=== PATIENT | male | born 2000 | race Caucasian/White ===

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

== ENCOUNTER → 2018-01-22 | Outpatient (REF) | payer OTHER ==
[~2018-01-22] MED LIST: AUGM875T28 PO; IBUP-1022 PO
[2018-01-22 13:02] LABS: BASO % 0.3 % (0.0-1.0); EOS # 0.1 10^3/uL (0.0-0.50); EOS % 0.8 % (0.0-3.0); HEMATOCRIT 47.2 % (42.0-52.0); HEMOGLOBIN 16.2 g/dl (13.5-17.5); LYMPH # 1.8 10^3/uL (1.5-6.5); LYMPH % 27.8 % (24.0-44.0); MEAN CORPUSCULAR HEMOGLOBIN 30.1 pg (27.0-33.0); MEAN CORPUSCULAR HGB CONC 34.3 g/dl (32.0-36.5); MEAN CORPUSCULAR VOLUME 87.7 fl (80.0-96.0); MONO # 1.2 10^3/uL (0.0-0.8); MONO % 19.4 % (0.0-5.0); NEUTROPHILS # 3.3 10^3/uL (1.8-7.7); NEUTROPHILS % 51.4 % (36.0-66.0); PLATELET COUNT, AUTOMATED 159 10^3/uL (150-450); RED BLOOD COUNT 5.38 10^6/uL (4.30-6.10); WHITE BLOOD COUNT 6.3 10^3/uL (4.0-10.0)
[2018-01-22 13:08] LABS: ALBUMIN 4.8 GM/DL (3.2-5.2); ALT/SGPT 33 U/L (12-78); BILIRUBIN,TOTAL 0.8 MG/DL (0.2-1.0); BLOOD UREA NITROGEN 12 MG/DL (7-18); CALCIUM LEVEL 9.2 MG/DL (8.5-10.1); CARBON DIOXIDE LEVEL 30 MEQ/L (21-32); CHLORIDE LEVEL 103 MEQ/L (98-107); CREATININE FOR GFR 1.05 MG/DL (0.70-1.30); GLUCOSE, FASTING 99 MG/DL (70-100); POTASSIUM SERUM 4.3 MEQ/L (3.5-5.1); SODIUM LEVEL 139 MEQ/L (136-145); TOTAL PROTEIN 8.5 GM/DL (6.4-8.2)
== END ==
LOC: M SFHCLERA 11:05
PROVIDERS: ATTEND Physician Assistant
DX: J02.9 Acute pharyngitis, unspecified (principal)

== ENCOUNTER 2018-12-25 18:16 | Emergency (ER) | payer OTHER ==
[~2018-12-25] VITALS: Ht 182.9 cm; Wt 127.3 kg
[2018-12-25 18:18] VITALS: BP 144/68
[2018-12-25] MEDS ORDERED: CITA20TA6 (18:24)
[2018-12-25] MEDS ORDERED: TETRACAINE 0.5% OPHTH SOLN 4ML OD ONE (19:30)
[2018-12-25] MEDS ORDERED: FLUORESCEIN OPHTH 1 MG STRIP OD ONE (19:30)
[2018-12-25] MEDS ORDERED: ERYTHROMYCIN OPHTH OINT OD ONE (19:45)
== END 2018-12-25 19:43 | disposition home or self-care (01) ==
LOC: M ED 18:16
DX: T15.01XA Foreign body in cornea, right eye, initial encounter (principal); X58.XXXA Exposure to other specified factors, initial encounter; Y92.89 Other specified places as the place of occurrence of the external cause; F33.9 Major depressive disorder, recurrent, unspecified; F41.9 Anxiety disorder, unspecified; Z79.899 Other long term (current) drug therapy

== ENCOUNTER → 2020-08-19 | Outpatient (CLI) | payer OTHER ==
[~2020-08-19] MED LIST changes: +CITA20TA6; +ONDA4TAB6 PO
== END ==
LOC: M WUC 14:44
PROVIDERS: ATTEND Nurse Practitioner Family
DX: M54.5 Low back pain (principal)

== ENCOUNTER 2020-11-30 05:32 | Emergency (ER) | payer OTHER ==
[~2020-11-30] VITALS: Ht 182.9 cm; Wt 127.3 kg
[~2020-11-30 05:32] MED LIST changes: -ONDA4TAB6 PO
[2020-11-30] MEDS ORDERED: NS 1,000 ML IV ONE (08:05)
[2020-11-30] MEDS ORDERED: METOCLOPRAMIDE INJ 10MG/2ML VIAL (J2765 PER 1) IV ONE (08:05)
--- OUTSIDE RECORDS SUMMARY | 2020-11-30 08:45 | CCD ---
Author Author [facility] Organization [facility] Address Unknown Phone Unavailable Care Team Providers Care Insurance Loss Control Surveyor Name Role Phone Ferreira, Claudia CHUCKING MACHINE SET UP OPERATOR Unavailable Unavailable Ferreira, Claudia CHUCKING MACHINE SET UP OPERATOR Unavailable Unavailable Ferreira, Claudia CHUCKING MACHINE SET UP OPERATOR Unavailable Unavailable Ferreira, Claudia CHUCKING MACHINE SET UP OPERATOR Unavailable Unavailable Ferreira, Claudia CHUCKING MACHINE SET UP OPERATOR Unavailable Unavailable Ferreira, Claudia CHUCKING MACHINE SET UP OPERATOR Unavailable Unavailable Ferreira, Claudia CHUCKING MACHINE SET UP OPERATOR Unavailable Unavailable Ferreira, Claudia CHUCKING MACHINE SET UP OPERATOR Unavailable Unavailable Ferreira, Claudia CHUCKING MACHINE SET UP OPERATOR Unavailable Unavailable Ferreira, Claudia CHUCKING MACHINE SET UP OPERATOR Unavailable Unavailable Ferreira, Claudia CHUCKING MACHINE SET UP OPERATOR Unavailable Unavailable Ferreira, Claudia CHUCKING MACHINE SET UP OPERATOR Unavailable Unavailable Ferreira, Claudia CHUCKING MACHINE SET UP OPERATOR Unavailable Unavailable Lexi Queen MD Unavailable Unavailable Lexi Queen MD Unavailable Unavailable Lexi Queen MD Unavailable Unavailable Lexi Queen MD Unavailable Unavailable Lexi Queen MD Unavailable Unavailable Lexi Queen MD Unavailable Unavailable Lexi Queen MD Unavailable Unavailable Lexi Queen MD Unavailable Unavailable Lexi Queen MD Unavailable Unavailable Lexi Queen MD Unavailable Unavailable Lexi Queen MD Unavailable Unavailable Lexi Queen MD Unavailable Unavailable Lexi Queen MD Unavailable Unavailable Lexi Queen MD Unavailable Unavailable Lexi Queen MD Unavailable Unavailable Queen, L Glen RAMIRES Unavailable Unavailable Queen, L Glen RAMIRES Unavailable Unavailable Queen, L Glen RAMIRES Unavailable Unavailable Queen, L Glen RAMIRES Unavailable Unavailable Queen, L Glen RAMIRES Unavailable Unavailable Queen, L Glen RAMIRES Unavailable Unavailable Queen, L Glen RAMIRES Unavailable Unavailable Queen, L Glen RAMIRES Unavailable Unavailable Queen, L Glen RAMIRES Unavailable Unavailable Queen, L Glen RAMIRES Unavailable Unavailable Queen, L Glen RAMIRES Unavailable Unavailable Queen, L Glen RAMIRES Unavailable Unavailable Queen, L Glen RAMIRES Unavailable Unavailable Queen, L Glen RAMIRES Unavailable Unavailable Queen, L Glen RAMIRES Unavailable Unavailable Queen, L Glen RAMIRES Unavailable Unavailable Queen, L Glen RAMIRES Unavailable Unavailable Queen, L Glen RAMIRES Unavailable Unavailable Queen, L Glen RAMIRES Unavailable Unavailable Queen, L Glen RAMIRES Unavailable Unavailable Queen, L Glen RAMIRES Unavailable Unavailable Queen, L Glen RAMIRES Unavailable Unavailable Queen, L Glen RAMIRES Unavailable Unavailable Queen, L Glen RAMIRES Unavailable Unavailable Queen, L Glen RAMIRES Unavailable Unavailable Queen, L Glen RAMIRES Unavailable Unavailable Queen, L Glen RAMIRES Unavailable Unavailable Queen, L Glen RAMIRES Unavailable Unavailable Queen, L Glen RAMIRES Unavailable Unavailable Queen, L Glen RAMIRES Unavailable Unavailable Queen, L Glen RAMIRES Unavailable Unavailable Queen, L Glen RAMIRES Unavailable Unavailable Queen, L Glen RAMIRES Unavailable Unavailable Queen, L Glen RAMIRES Unavailable Unavailable Queen, L Glen RAMIRES Unavailable Unavailable RING, K NADIA PA Unavailable Unavailable RING, K NADIA PA Unavailable Unavailable RING, K NADIA PA Unavailable Unavailable RING, K NADIA PA Unavailable Unavailable RING, K NADIA PA Unavailable Unavailable RING, K NADIA PA Unavailable Unavailable RING, K NADIA PA Unavailable Unavailable RING, K NADIA PA Unavailable Unavailable RING, K NADIA PA Unavailable Unavailable RING, K NADIA PA Unavailable Unavailable RING, K NADIA PA Unavailable Unavailable RING, K NADIA PA Unavailable Unavailable RING, K NADIA PA Unavailable Unavailable RING, K NADIA PA Unavailable Unavailable RING, K NADIA PA Unavailable Unavailable RING, K NADIA PA Unavailable Unavailable RING, K NADIA PA Unavailable Unavailable RING, K NADIA PA Unavailable Unavailable RING, K NADIA PA Unavailable Unavailable RING, K NADIA PA Unavailable Unavailable RING, K NADIA PA Unavailable Unavailable Re-disclosure Warning The records that you are about to access may contain information from federally-assisted alcohol or drug abuse programs. If such information is present, then the following federally mandated warning applies: This information has been disclosed to you from records protected by federal confidentiality rules (42 CFR part 2). The federal rules prohibit you from making any further disclosure of this information unless further disclosure is expressly permitted by the written consent of the person to whom it pertains or as otherwise permitted by 42 CFR part 2. A general authorization for the release of medical or other information is NOT sufficient for this purpose. The Federal rules restrict any use of the information to criminally investigate or prosecute any alcohol or drug abuse patient.The records that you are about to access may contain highly sensitive health information, the redisclosure of which is protected by Article 27-F of the [facility] Public Health law. If you continue you may have access to information: Regarding HIV / AIDS; Provided by facilities licensed or operated by the [facility] Office of Mental Health; or Provided by the [facility] Office for People With Developmental Disabilities. If such information is present, then the following [facility] mandated warning applies: This information has been disclosed to you from confidential records which are protected by state law. State law prohibits you from making any further disclosure of this information without the specific written consent of the person to whom it pertains, or as otherwise permitted by law. Any unauthorized further disclosure in violation of state law may result in a fine or detention sentence or both. A general authorization for the release of medical or other information is NOT sufficient authorization for further disc losure. Encounters Encounter Providers Location Date Indications Data Source(s ) OFFICE OUTPATIENT NEW 30 MINUTES Attender: Glen Queen MD Physic al Therapy 11/03/2020 08:00:00 AM EDT [facility] ([facility]) Outpatient [address] [facility], [facility] [id number] 09/26/2020 12:00:00 AM EDT eCW1 ([facility]) Outpatient Attender: Claudia Boswell stephanie 08/19/2020 02:10:00 PM EDT [facility] ([facility]) Outpatient Attender: NADIA [facility] 03/23/2020 10:10:00 AM EST [facility] ([facility]) Immunizations Vaccine Date Status Description Data Source(s) COVID-19 VACCINE Moderna 07/23/2020 12:00:00 AM EDT completed [facility] Vaccine Series Complete: YESThis Data wa s Submitted to [facility] Via [employer]. COVID-19 VACCINE Moderna 06/25/2020 12:00:00 AM EDT completed [facility] Vaccine Series Complete: NOThis Data was Submitted to [facility] Via [employer]. Medications Medication Brand Name Start Date Product Form Dose Route Admi nistrative Instructions Pharmacy Instructions Status Indications Reaction Description Data Source(s) 10 mg 09/26/2020 12:00:00 AM EDT tablet 90 TAKE 1 TABLET BY MOUTH ONCE A DAY TAKE 1 TABLET BY MOUTH ONCE A DAY SOLD: 10/03/2020 [facility] Citalopram 10 MG Oral Tablet Citalopram Hydrobromide 1 0 MG Citalopram Hydrobromide 10 MG 09/26/2020 12:00:00 AM EDT 1.0 {tablet} active Citalopram Hydrobromide 10 MG [facility] ([facility]) Amoxicillin 875 MG / Clavulanate 125 MG Oral Tablet 87 5-125 mg AMOXICILLIN/POTASSIUM CLAV 08/19/2020 12:00:00 AM EDT tablet 20 TAKE ONE TABLET BY MOUTH TWICE A DAY DIRECTED FOR 10 DAYS TAKE ONE TABLET BY MOUTH TWICE A DAY DIRECTED FOR 10 DAYS SOLD: 08/19/2020 [facility] No Active Medications 08/19/2020 12:00:00 AM EDT completed [facility] ([facility]) Amoxicillin 875 MG / Clavulanate 125 MG Oral Tablet Am oxicillin/Clavulanate Potassium 08/19/2020 12:00:00 AM EDT ORAL active [facility] ([facility]) Ofloxacin 3 MG/ML Otic Solution Ofloxacin (Otic) 03/23/2020 12:00:00 AM EST AURICULAR completed [facility] ([facility]) 0.3 % 03/23/2020 12:00:00 AM EST drops 5 INSTILL 4-6 DROPS INTO THE LEFT EAR EVERY 12 HOURS FOR 7 DAYS INSTILL 4-6 DROPS INTO THE LEFT EAR EVER Y 12 HOURS FOR 7 DAYS SOLD: 03/23/2020 [facility] 20 mg 10/15/2019 12:00:00 AM EDT tablet 30 TAKE ONE TABLET BY MOUTH EVERY DAY MAXIMUM DAILY DOSE = 1 TAKE ONE TABLET BY MOUTH EVERY DAY MAXIM UM DAILY DOSE = 1 SOLD: 11/14/2019 [facility] 20 mg 10/15/2019 12:00:00 AM EDT tablet 30 TAKE ONE TABLET BY MOUTH EVERY DAY MAXIMUM DAILY DOSE = 1 TAKE ONE TABLET BY MOUTH EVERY DAY MAXIM UM DAILY DOSE = 1 SOLD: 10/17/2019 [facility] Insurance Providers Payer name Policy type / Coverage type Policy ID Covered green party ID Covered green party's relationship to mruray Policy [place] Plan Information MEDICAID [place] [id number] 18 [id number] [facility] COMMUNITY PLAN [facility] [id number] SP [id number] [facility] [place]UNITY PL[place] [id number] 18 [id number] MEDICAID [id number] SP [id number] [facility] [id number] [facility] [id number] MEDICAID -PHYSICIAN [id number] MEDICAID -CLINIC [id number] ANSI-Medicaid [id number] ANSI-Medicaid [id number] ANSI-Commercial [id number] SELF PAY ONLY [id number] SP [id number] DAVID [id number] SP [id number] 200 [id number] [facility] [id number] SP [id number] Problems, Conditions, and Diagnoses Code Display Name Description Problem Type Effective Dates Data Source(s) G89.29 [id number] Other chronic pain Problem 09/26/2020 12:00: 00 AM EDT eCW1 ([facility]) Surgeries/Procedures Procedure Description Date Indications Data Source(s) OFFICE OUTPATIENT NEW 30 MINUTES 11/03/2020 12:00:00 A M EDT [facility] ([facility] ) OFFICE OUTPATIENT VISIT 15 MINUTES 08/19/2020 12:00:00 AM EDT [facility] ([facility]) OFFICE OUTPATIENT VISIT 15 MINUTES 03/23/2020 12:00:00 AM EST [facility] ([facility]) Results ID Date Data Source [id number] 08/19/2020 12:00:00 AM EDT [facility] Name Value Range Interpretation Code Description Data Mirtha rce(s) Supporting Document(s) SARS-CoV2 Rapid Antigen Negative [facility] This lab was reported by [facility]. Procedure Social History Code Duration Value Status Description Data Source(s ) Smoking 09/26/2020 12:00:00 AM EDT Never Smoker completed Never S moker eCW1 ([facility]) Smoking 08/19/2020 12:00:00 AM EDT Patient has never smoked co mpleted Patient has never smoked [facility] ([facility]) Vital Signs ID Date Data Source UNK Name Value Range Interpretation Code Description Data Source(s) Body temperature 97.1 [degF] 97.1 [degF] [facility] ([facility] ) Body height 69.5 [in_i] 69.5 [in_i] [facility] ([facility] ) 5'9.50" Body weight 288.12 [lb_av] 288.12 [lb_av] MEDEN T ([facility] ) Body mass index (BMI) [Ratio] 41.9 kg/m2 41.9 k g/m2 [facility] ([facility] ) Body weight 301.2 [lb_av] 301.2 [lb_av] eCW1 ([facility]) Body weight 136.62 kg 136.62 kg eCW1 ([facility]) Body height 70.5 [in_i] 70.5 [in_i] eCW1 ([facility]) Body mass index (BMI) [Ratio] 42.60 kg/m2 42.60 kg/m2 eCW1 ([facility]) Heart rate 79 /min 79 /min [facility]) Respiratory rate 17 /min 17 /min eCW1 ([facility]) Body temperature 98.2 [degF] 98.2 [degF] eCW1 ( [facility]) Systolic blood pressure 141 mm[Hg] 141 mm[Hg] e CW1 ([facility]) Diastolic blood pressure 68 mm[Hg] 68 mm[Hg] eCW1 ([facility]) Body weight 305.00 [lb_av] 305.00 [lb_av] MEDEN T ([facility]) Body height 72 [in_i] 72 [in_i] [facility] ([facility]) 6'0" Body mass index (BMI) [Ratio] 41.4 kg/m2 41.4 k g/m2 [facility]) Systolic blood pressure 133 mm[Hg] 133 mm[Hg] M EDENT ([facility]) Diastolic blood pressure 87 mm[Hg] 87 mm[Hg] MED[facility] ([facility]) Heart rate 72 /min 72 /min [facility] ([facility]) Respiratory rate 17 /min 17 /min [facility] ( [facility]) Oxygen saturation in Arterial blood by Pulse oximetry 95 % 95 % MED[facility] ([facility]) Body temperature 98.2 [degF] 98.2 [degF] [facility] ([facility]) Systolic blood pressure 150 mm[Hg] 150 mm[Hg] M EDENT ([facility]) drank 2 energy drinks before coming in Diastolic blood pressure 100 mm[Hg] 100 mm[Hg] [facility] ([facility]) drank 2 energy drinks before coming in Heart rate 78 /min 78 /min [facility] ([facility], [facility]) Respiratory rate 14 /min 14 /min [facility] ( [facility]) Oxygen saturation in Arterial blood by Pulse oximetry 97 % 97 % [facility] ([facility]) Body temperature 98.7 [degF] 98.7 [degF] MED[facility] ([facility]) Body weight 310.00 [lb_av] 310.00 [lb_av] MEDEN T ([facility]) Body height 72 [in_i] 72 [in_i] [facility] ([facility]) 6'0" Body mass index (BMI) [Ratio] 42.0 kg/m2 42.0 k g/m2 [facility] ([facility]) Patient Treatment Plan of Care Planned Activity Planned Date Details Description Data Source (s) Citalopram 10 MG Oral Tablet 09/26/2020 12:00:00 AM EDT eCW1 ([facility])
--- OUTSIDE RECORDS SUMMARY | 2020-11-30 08:45 | CCD | Continuity of Care Document ---
Author Author Alton ROMAN MD Organization Unknown Address [address] [place] [address] Phone [phone] Care Team Providers Care Cover Remover Name Role Phone Glen Roman MD AUTM [phone] Aixa Mcginnis MD AUTM [phone] Ashley Liang [facility] AUTM [phone] Problems Description No Information Available Social History Type Date Description Comments Sex Unknown Allergies, Adverse Reactions, Alerts Description No Known Drug Allergies Medications Active Medications SIG Qnty Indications Ordering Provide r Date Celexa 20mg Tablets 1 by mouth every day Unknown Immunizations Description No Information Available Vital Signs Date Vital Result Comment 11/03/2020 8:36am Body Temperature 97.1 F Height 69.5 inches 5'9.50" Weight 288.12 lb BMI (Body Mass Index) 41.9 kg/m2 Results Description No Information Available Procedures Date Code Description Status 11/03/2020 11660 Office/Outpatient New Low [facility] 30 -44 Minutes Completed Medical Devices Description No Information Available Encounters Type Date Location Provider Dx Diagnosis Office Visit 11/03/2020 8:00a [place] Glen Roman MD M54.5 Low back pain E66.01 Morbid (severe) obesity due to excess calories Z68.41 Body mass index [BMI] 40.0-4 4.9, adult Assessments Date Code Description Provider 11/03/2020 M54.5 Low back pain Glen Roman MD 11/03/2020 E66.01 Morbid (severe) obesity due to e xcess calories Glen Roman MD 11/03/2020 Z68.41 Body mass index [BMI] 40.0-44.9, adult Glen Roman MD Plan of Treatment 11/03/2020 - Glen Roman MD* M54.5 Low back pain* Follow up:* PRN * E66.01 Morbid (severe) obesity due to excess calories * Z68.41 Body mass index [BMI] 40.0-44.9, adult Functional Status Description No Information Available Mental Status Description No Information Available Referrals Refer to Dr Reason for Referral Status Appt Date Glen Roman MD Physical therapy low back pe r [facility] auth is approved for eval, patient is going [facility] passed to chart sw. Created [address] [facility], [address] [place] [address] [phone] Glen Roman MD M54.5 LOW BACK PAIN Created [address] [place] [address], [address] [place] [address] [phone]
--- OUTSIDE RECORDS SUMMARY | 2020-11-30 08:45 | CCD | Continuity of Care Document ---
Author Author Alton ROMAN MD Organization Unknown Address [address] [place] [address] Phone [phone] Care Team Providers Care Tongue Stitcher Name Role Phone Glen Roman MD AUTM [phone] Aixa Mcginnis MD AUTM [phone] Ashley Liang [facility] AUTM [phone] Problems Description No Information Available Social History Type Date Description Comments Sex Unknown Allergies, Adverse Reactions, Alerts Description No Information Available Medications Description No Information Available Immunizations Description No Information Available Vital Signs Date Vital Result Comment 11/03/2020 8:36am Body Temperature 97.1 F Height 69.5 inches 5'9.50" Weight 288.12 lb BMI (Body Mass Index) 41.9 kg/m2 Results Description No Information Available Procedures Description No Information Available Medical Devices Description No Information Available Encounters Description No Information Available Assessments Date Code Description Provider 11/03/2020 M51.36 Other intervertebral disc degene ration, lumbar region Glen Roman MD 11/03/2020 M54.5 Low back pain Glen Roman MD Plan of Treatment 11/03/2020 - Glen Roman MD* M51.36 Other intervertebral disc degeneration, lumbar region* Follow up:* PRN * M54.5 Low back pain Functional Status Description No Information Available Mental Status Description No Information Available Referrals Refer to Reason for Referral Status Appt Date Glen Roman MD M54.5 LOW BACK PAIN Created [address] [address] [phone]
[2020-11-30] MEDS ORDERED: ONDA4TAB6 PO (10:09)
[2020-11-30 10:29] VITALS: BP 130/61
== END 2020-11-30 10:36 | disposition home or self-care (01) ==
LOC: M ED 05:32
DX: R11.2 Nausea with vomiting, unspecified (principal); R19.7 Diarrhea, unspecified; Z87.891 Personal history of nicotine dependence
CPT/HCPCS: 80047; 96361; 96374; 99284; J2765

== ENCOUNTER 2021-08-01 18:52 | Emergency (ER) | payer OTHER ==
[~2021-08-01] VITALS: Ht 180.3 cm; Wt 109.1 kg
[~2021-08-01 18:52] MED LIST changes: +ONDA4TAB6 PO
[2021-08-01] MEDS ORDERED: LIDOCAINE 2% MDV 20ML VIAL SC ONE (20:45)
[2021-08-01] MEDS ORDERED: AMOX875T2 PO (21:15)
[2021-08-01] MEDS ORDERED: AUGMENTIN 875 MG TAB PO ONE (21:20)
[2021-08-01] MEDS ORDERED: BACITRACIN OINTMENT 30GM TUBE TOP ONE (21:20)
[2021-08-01 21:27] VITALS: BP 137/68
== END 2021-08-01 21:29 | disposition home or self-care (01) ==
LOC: M ED 18:52
DX: S01.112A Laceration without foreign body of left eyelid and periocular area, initial encounter (principal); W50.0XXA Accidental hit or strike by another person, initial encounter; Y92.830 Public park as the place of occurrence of the external cause